=== PATIENT | male | born 1975 | race Caucasian/White ===

== ENCOUNTER 2017-01-16 13:27 | Emergency (ER) | payer OTHER ==
--- NOTE | 2017-01-16 14:08 | ED CLINICAL REPORT ---
Clinical Report - Physicians/Mid Levels [facility] [address] [place] [address] 01/16/2017 13:30 Patient: DEWAYNE COTA Time Seen: 13:51; initial patient contact, initial documentation, patient care assumed. Arrived- By private vehicle. Historian- patient. HISTORY OF PRESENT ILLNESS Chief Complaint: Injury to the right hand. The injury happened just prior to arrival. Occurred at work. ( was at work, but on lunch break working on his car). The patient sustained a laceration from a knife. Patient is experiencing mild pain. Patient denies injury to the head or neck. No other injury. REVIEW OF SYSTEMS The patient sustained a laceration. No swelling, tingling, numbness or weakness. All systems otherwise negative, except as recorded above. PAST HISTORY See nurses notes. PROBLEMS: Blood clot right leg- resolved. --13:40 Page-Melvin Huang, R.N. ADDITIONAL SURGERIES: Left hand. Beach compartment surgery. Wrist- left. --13:40 Page-Melvin Huang, R.N. The patient's dominant hand is the right. Tetanus immunization status is up-to-date. SOCIAL HISTORY Never smoker. Occasional alcohol use; consumes beer occasionally. History of occasional drug use: marijuana. No recent travel. Is a local resident. FAMILY HISTORY No significant family medical history. ADDITIONAL NOTES The nursing notes have been reviewed with agreement regarding the chief complaint, HPI, ROS, PMH and patient medications and allergies. PHYSICAL EXAM Vital Signs: 01/16/2017 13:41 BP: 132/77. HR: 74. RR: 17. O2 saturation: 96%. Temp: 98.6 F. Pain level now: 6/10. Have been reviewed as normal and appear to be correct. Appearance: Alert. Oriented X3. No acute distress. Head: Head atraumatic. Eyes: Pupils equal, round and reactive to light. Eyes normal inspection. Respiratory: No respiratory distress. Skin: Skin warm and dry. Skin intact. Extremities: Hand injury present. Right palm: mild tenderness and subcutaneous 1.0 cm laceration of the radial aspect of the palm and thenar area. SEE LACERATION PROCEDURE NOTE #1. Neurovascular intact distally. No erythema, swelling, abrasion, ecchymosis or puncture wound. No foreign body or deformity. No limitation in movement. No wrist injury. Hand and wrist exam otherwise negative. Extremities otherwise negative. Neuro, Vascular and Tendons: Vascular status intact. Sensation intact. Motor intact. Tendon function intact. Neuro: Oriented X 3. No motor deficit. No sensory deficit. Note: isolated injury to hand. PROGRESS AND PROCEDURES Laceration Repair: Location: right hand. Length: 1 cm. Complexity: simple (local anesthesia used and sutured). Wound depth/shape- subcutaneous, linear and irregular and involving fascia. Wound is clean. No contamination, foreign body or contused tissue present. No tissue loss. Distal neuro/vascular/tendon status normal. Tendon not examined. No tendon deficit or laceration or tendon injury. Local anesthesia provided using 1% lidocaine (3 mL). Prepped with Betadine. Wound explored, cleansed, irrigated and examined to the base in bloodless field with normal saline. Wound not debrided. No foreign material removed. Closure of skin: interrupted 4-0 nylon (2 sutures). Post-procedure: he is stable and there are no complications. Bleeding is controlled and neuro-vascular status is intact distal to the wound. Clean dressing applied. (per tech or nurse, see other notes). Tetanus immunization up-to-date. Estimated blood loss: 1 mL. Patient counseled in person regarding the patient's stable condition and diagnosis. Differential Diagnosis: Other possible considerations: hand lac, fb, skin avulsion, tendon injury. Above considerations are based on history and physical exam. Differential diagnosis was discussed with patient. Disposition: Discharged home in good and improved condition (14:08). Condition: good and stable. CLINICAL IMPRESSION Single deep laceration to the right hand.Treatment of laceration not delayed. No infection or foreign body present. INSTRUCTIONS Protect wound and keep wound area clean. Change dressing twice daily. Soak in warm soapy water twice daily. Apply bacitracin twice daily. Sutures should be removed in fourteen days. Warnings: GENERAL WARNINGS: Return or contact your physician immediately if your condition worsens or changes unexpectedly, if not improving as expected, or if other problems arise. Specifically return if problem worsens. Follow-up: Follow up with your doctor in about two weeks even if well and for suture removal and wound check. Call for an appointment. Summary of care provided to patient. Understanding of the discharge instructions verbalized by patient. (Electronically signed by Kerry Awad A.R.N.P. 01/16/2017 14:32)
--- NOTE | 2017-01-16 14:09 | ED NURSING NOTES ---
Clinical Report - Nurses [facility] [address] [place] [address] 01/16/2017 13:30 [id number] Triage time 13:36 Jan 16 2017. Acuity: LEVEL 4. Chief Complaint: INJURY TO RIGHT HAND. INJURY TO THE RIGHT HAND. Alert. No acute distress. SEPSIS SCREEN: Sepsis Screen: negative. Negative (no infection suspected/documented). ISABEL COMA SCORE: Isabel Coma Scale: 15- eyes open spontaneously (4); best verbal response- oriented x 4 (5); best motor response- obeys commands (6). --13:42 Melvin Montoya R.N. 13:39 01/16/17. BP: 132/77. HR: 74. RR: 17. O2 saturation: 96%. Temp: 98.6 F. Pain level now: 03/16. --14:35 Melvin Montoya R.N. Weight: 118.3 kg stated. Height/Length: 74 inches Per Patient. BMI: 33.5. --13:41 Melvin Montoya R.N. Medications None. --13:39 Melvin Montoya R.N. Medication/allergy information source: the patient. --13:42 Melvin Montoya R.N. Allergies Penicillin. --13:39 Melvin Montoya R.N. History Arrived by private vehicle. Historian: patient. 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 PAST MEDICAL HX: Tetanus status: up-to-date. Immunizations: up-to-date. SOCIAL HX: Never smoker. Occasional alcohol use; consumes beer occasionally. History of occasional drug use: marijuana. No infectious disease exposure. ABUSE ASSESSMENT: No report of abuse. SELF HARM ASSESSMENT: A self harm assessment was performed. The patient answered "no" to the question "Have you recently felt down, depressed, or hopeless?", "Have you noticed less interest or pleasure in doing things?", "Do you have thoughts of harming or killing yourself?", "Are you here because you tried to hurt yourself?", "Have you ever tried to hurt yourself before today?", "Have you recently had thoughts about harming or killing others?" and "Do you have any dangerous items in your possession?". FALL RISK ASSESSMENT: Fall risk assessment completed. No fall risk identified. NUTRITIONAL RISK ASSESSMENT: The nutritional risk assessment revealed no deficiencies. FUNCTIONAL ASSESSMENT: Functional assessment: no impairments noted. LEARNING NEEDS ASSESSMENT: The learning needs assessment revealed no barriers. SKIN INTEGRITY ASSESSMENT: Skin integrity risk assessment completed. No skin integrity risk identified. --13:42 Melvin Montoya R.N. PROBLEMS: Blood clot right leg- resolved. --13:40 Melvin Montoya R.N. ADDITIONAL SURGERIES: Left hand. Beach compartment surgery. Wrist- left. --13:40 Melvin Montoya R.N. Interventions ID band on patient. To treatment room. --13:42 Melvin Montoya R.N. PHYSICAL ASSESSMENT Ambulatory to room. Patient gowned. GENERAL / NEURO / PSYCH: Oriented X 4. Alert. Appears in no acute distress. EXTREMITIES: Capillary refill is less than 2 seconds in the extremities. Extremity pulses are within normal limits. Extremities exhibit normal ROM. Neuro-vascular status intact to the extremity. SKIN: Skin is warm and dry. Single small laceration to right hand. --13:44 Melvin Montoya R.N. NURSING PROGRESS NOTES Extremity elevated. Patient gowned. Reassurance given. Two patient identifiers checked. Call light placed in reach. Side rails up x 1. Bed placed in lowest position. Brakes of bed on. Patient ready for evaluation- chart flagged. --13:44 Melvin Montoya R.N. 14:02 01/16/2017 Lidocaine Injection Injectable 1 % given. (given to Kerry CALIX). --14:12 Melvin Montoya R.N. Applied dressing, following the application of antibiotic ointment (bacitracin). Secured with kerlix. --14:22 Kvng Tidwell, ER Tech1. DISPOSITION / DISCHARGE Condition at departure: improved and stable. The goals identified in the patient's plan of care were met. No learning barriers present. Discharge instructions provided and reviewed with the patient. Patient verbalized understanding. Written instructions provided in Arabic. The patient was discharged by the nurse practitioner. He was discharged home. He left the Emergency Department ambulatory and via private vehicle. Patient driving. ( dressing applied by edt per IRON PILER, lac/sutures c/d/i upon dc, pt instructed on proper home care and f/u for suture removal. pt utd on tdap-). --14:34 Melvin Montoya R.N. 14:22 01/16/17. BP: 112/48 taken on the left arm, while lying. HR: 72. RR: 17 (regular). O2 saturation: 99% on room air. Temp: 98 F (oral). Pain level now: 0/10. --14:34 Melvin Montoya R.N. Locked/Released at 01/16/2017 14:36 by Melvin Montoya R.N.
--- NOTE | 2017-01-16 14:09 | ED NURSING NOTES ---
Clinical Report - Nurses [facility] [address] [place] [address] 01/16/2017 13:30 [id number] Triage time 13:36 Jan 16 2017. Acuity: LEVEL 4. Chief Complaint: INJURY TO RIGHT HAND. INJURY TO THE RIGHT HAND. Alert. No acute distress. SEPSIS SCREEN: Sepsis Screen: negative. Negative (no infection suspected/documented). ISABEL COMA SCORE: Isabel Coma Scale: 15- eyes open spontaneously (4); best verbal response- oriented x 4 (5); best motor response- obeys commands (6). --13:42 Melvin Montoya R.N. 13:39 01/16/17. BP: 132/77. HR: 74. RR: 17. O2 saturation: 96%. Temp: 98.6 F. Pain level now: 03/16. --14:35 Melvin Montoya R.N. Weight: 118.3 kg stated. Height/Length: 74 inches Per Patient. BMI: 33.5. --13:41 Melvin Montoya R.N. Medications None. --13:39 Melvin Montoya R.N. Medication/allergy information source: the patient. --13:42 Melvin Montoya R.N. Allergies Penicillin. --13:39 Melvin Montoya R.N. History Arrived by private vehicle. Historian: patient. 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 PAST MEDICAL HX: Tetanus status: up-to-date. Immunizations: up-to-date. SOCIAL HX: Never smoker. Occasional alcohol use; consumes beer occasionally. History of occasional drug use: marijuana. No infectious disease exposure. ABUSE ASSESSMENT: No report of abuse. SELF HARM ASSESSMENT: A self harm assessment was performed. The patient answered "no" to the question "Have you recently felt down, depressed, or hopeless?", "Have you noticed less interest or pleasure in doing things?", "Do you have thoughts of harming or killing yourself?", "Are you here because you tried to hurt yourself?", "Have you ever tried to hurt yourself before today?", "Have you recently had thoughts about harming or killing others?" and "Do you have any dangerous items in your possession?". FALL RISK ASSESSMENT: Fall risk assessment completed. No fall risk identified. NUTRITIONAL RISK ASSESSMENT: The nutritional risk assessment revealed no deficiencies. FUNCTIONAL ASSESSMENT: Functional assessment: no impairments noted. LEARNING NEEDS ASSESSMENT: The learning needs assessment revealed no barriers. SKIN INTEGRITY ASSESSMENT: Skin integrity risk assessment completed. No skin integrity risk identified. --13:42 Melvin Montoya R.N. PROBLEMS: Blood clot right leg- resolved. --13:40 Melvin Montoya R.N. ADDITIONAL SURGERIES: Left hand. Beach compartment surgery. Wrist- left. --13:40 Melvin Montoya R.N. Interventions ID band on patient. To treatment room. --13:42 Melvin Montoya R.N. PHYSICAL ASSESSMENT Ambulatory to room. Patient gowned. GENERAL / NEURO / PSYCH: Oriented X 4. Alert. Appears in no acute distress. EXTREMITIES: Capillary refill is less than 2 seconds in the extremities. Extremity pulses are within normal limits. Extremities exhibit normal ROM. Neuro-vascular status intact to the extremity. SKIN: Skin is warm and dry. Single small laceration to right hand. --13:44 Melvin Montoya R.N. NURSING PROGRESS NOTES Extremity elevated. Patient gowned. Reassurance given. Two patient identifiers checked. Call light placed in reach. Side rails up x 1. Bed placed in lowest position. Brakes of bed on. Patient ready for evaluation- chart flagged. --13:44 Melvin Montoya R.N. 14:02 01/16/2017 Lidocaine Injection Injectable 1 % given. (given to Kerry CALIX). --14:12 Melvin Montoya R.N. Applied dressing, following the application of antibiotic ointment (bacitracin). Secured with kerlix. --14:22 Kvng Tidwell, ER Tech1. DISPOSITION / DISCHARGE Condition at departure: improved and stable. The goals identified in the patient's plan of care were met. No learning barriers present. Discharge instructions provided and reviewed with the patient. Patient verbalized understanding. Written instructions provided in Hebrew. The patient was discharged by the nurse practitioner. He was discharged home. He left the Emergency Department ambulatory and via private vehicle. Patient driving. ( dressing applied by edt per [employer], lac/sutures c/d/i upon dc, pt instructed on proper home care and f/u for suture removal. pt utd on tdap-). --14:34 Melvin Montoya R.N. 14:22 01/16/17. BP: 112/48 taken on the left arm, while lying. HR: 72. RR: 17 (regular). O2 saturation: 99% on room air. Temp: 98 F (oral). Pain level now: 0/10. --14:34 Melvin Montoya R.N. Locked/Released at 01/16/2017 14:36 by Melvin Montoya R.N.
--- NOTE | 2017-01-16 14:09 | ED ORDER SUMMARY ---
..... Patient: DEWAYNE COTA OrderSheet [facility] VisitID: [id number] [address] [place] [address] 41y, M Registration Date/Time: 01/16/2017 ORDER SHEET Weight: 118.3 kg (stated) Allergies: Penicillin GENERAL ORDERS: Suture Set-up: (13:55 01/16/2017 HBivens A.R.N.P.) (14:28 KWilliams R.N.) Dress Wounds (13:55 01/16/2017 HBivens A.R.N.P.) (14:28 KWilliams R.N.) MEDICATION ORDERS: Lidocaine Injection 1% plain (NOW) (13:55 01/16/2017 HBivens A.R.N.P.) (Ack 14:02 KPagilberto-Reina R.N.) (14:12 KPagilberto-Reina R.N.) IV FLUIDS: ORDER SHEET NOTES: [Electronically signed by Kerry AwadR.N.P. (14:32 01/16/2017)] [Electronically signed by Melvin Montoya R.N. (14:36 01/16/2017)] [Electronically locked/signed by Melvin Montoya R.N. (14:36 01/16/2017)]
--- NOTE | 2017-01-16 14:09 | ED ORDER SUMMARY ---
..... Patient: DEWAYNE COTA OrderSheet [facility] VisitID: [id number] [address] [place] [address] 41y, M Registration Date/Time: 01/16/2017 ORDER SHEET Weight: 118.3 kg (stated) Allergies: Penicillin GENERAL ORDERS: Suture Set-up: (13:55 01/16/2017 HBivens A.R.N.P.) (14:28 KWilliams R.N.) Dress Wounds (13:55 01/16/2017 HBivens A.R.N.P.) (14:28 KWilliams R.N.) MEDICATION ORDERS: Lidocaine Injection 1% plain (NOW) (13:55 01/16/2017 HBivens A.R.N.P.) (Ack 14:02 KPagilberto-Reina R.N.) (14:12 KPagilberto-Reina R.N.) IV FLUIDS: ORDER SHEET NOTES: [Electronically signed by Kerry AwadR.N.P. (14:32 01/16/2017)] [Electronically signed by Melvin Montoya R.N. (14:36 01/16/2017)] [Electronically locked/signed by Melvin Montoya R.N. (14:36 01/16/2017)]
--- NOTE | 2017-01-16 14:36 | ED MAR SUMMARY ---
..... Medication Administration Record [facility] [address] [place] [address] Patient: DEWAYNE COTA Visit ID: [id number] 41y, M Weight: 118.3 kg Height/Length: 74 in BMI: 33.5 ALLERGIES: Penicillin Given 14:02 01/16/2017 Melvin Montoya R.N. Medication Administered: LIDOCAINE [INJECTION], Dose: 1 % Injectable Injection. Medication Ordered: Lidocaine Injection 1% plain (NOW).
--- NOTE | 2017-01-16 14:36 | ED MED RECONCILIATION SUMMARY ---
Patient: DEWAYNE COTA Medication Reconciliation Report [facility] VisitID: [id number] [address] [place] [address] 41y, M Registration Date/Time: 01/16/2017 Weight: 118.3 kg Height/Length: 74 in. BMI: 33.5 ALLERGIES: Penicillin The patient's Home Medications are listed below: NONE. The source(s) of the original Home Medication information: patient The following Medications were given to the patient in the Emergency Department: Lidocaine [Injection] Injection 1 %, administered: 01/16/2017 2:02:00 PM The following Medications were prescribed to the patient: None.
--- NOTE | 2017-01-16 14:36 | ED MED RECONCILIATION SUMMARY ---
Patient: DEWAYNE COTA Medication Reconciliation Report [facility] VisitID: [id number] [address] [place] [address] 41y, M Registration Date/Time: 01/16/2017 Weight: 118.3 kg Height/Length: 74 in. BMI: 33.5 ALLERGIES: Penicillin The patient's Home Medications are listed below: NONE. The source(s) of the original Home Medication information: patient The following Medications were given to the patient in the Emergency Department: Lidocaine [Injection] Injection 1 %, administered: 01/16/2017 2:02:00 PM The following Medications were prescribed to the patient: None.
--- NOTE | 2017-01-16 14:36 | ED MAR SUMMARY ---
..... Medication Administration Record [facility] [address] [place] [address] Patient: DEWAYNE COTA Visit ID: [id number] 41y, M Weight: 118.3 kg Height/Length: 74 in BMI: 33.5 ALLERGIES: Penicillin Given 14:02 01/16/2017 Melvin Montoya R.N. Medication Administered: LIDOCAINE [INJECTION], Dose: 1 % Injectable Injection. Medication Ordered: Lidocaine Injection 1% plain (NOW).
--- NOTE | 2017-01-16 14:36 | ED DISCHARGE INSTRUCTIONS ---
Patient: DEWAYNE COTA General Instructions [facility] VisitID: [id number] [place] [address] 41y, M Registration Date/Time: 01/16/2017 Single deep laceration to the right hand.Treatment of laceration not delayed. No infection or foreign body present. INSTRUCTIONS Protect wound and keep wound area clean. Change dressing twice daily. Soak in warm soapy water twice daily. Apply bacitracin twice daily. Sutures should be removed in fourteen days. Warnings: GENERAL WARNINGS: Return or contact your physician immediately if your condition worsens or changes unexpectedly, if not improving as expected, or if other problems arise. Specifically return if problem worsens. Follow-up: Follow up with your doctor in about two weeks even if well and for suture removal and wound check. Call for an appointment. Summary of care provided to patient. Understanding of the discharge instructions verbalized by patient. ADDITIONAL INFORMATION Laceration (All Closures) Alaceration is a cut through the skin. This will usually require stitches (sutures) or eben if it is deep. Minor cuts may be treated with a surgical tape closure orskin glue. Home care The following guidelines will help you care for your laceration at home: Extremity, face, or trunk wounds Keep the wound clean and dry. If a bandage was applied and it becomes wet or dirty, replace it. Otherwise, leave it in place for the first 24 hours. If stitches or eben were used, clean the wound daily. After removing the bandage, wash the area with soap and water. Use a wet cotton swab to loosen and remove any blood or crust that forms. The doctor may prescribe an antibiotic cream or ointment to prevent infection. Do not stop taking this medication until you have finished the prescribed course or the doctor tells you to stop. The doctor may also prescribe medications for pain. Follow the doctors instructions for taking these medications. You may remove the bandage to shower as usual after the first 24 hours, but do not soak the area in water (no swimming) until the stitches or eben are removed. If surgical tape was used, keep the area clean and dry. If it becomes wet, blot it dry with a towel. If skin glue was used, do not scratch, rub, or pick at the adhesive film. Do not place tape directly over the film. Do not apply liquid, ointment, or creams to the wound while the film is in place. Do not clean the wound with peroxide and do not apply ointments. Avoid activities that cause heavy sweating until the film has fallen off. Protect the wound from prolonged exposure to sunlight or tanning lamps. You may shower as usual but do not soak the wound in water (no baths or swimming). The film will fall off by itself in 510 days. Scalp wounds During the first two days, you may carefully rinse your hair in the shower to remove blood, glass or dirt particles. After two days, you may shower and shampoo your hair normally. Do not soak your scalp in the tub or go swimming until the stitches or eben have been removed. Talk with your doctor before applying any antibiotic ointment to the wound. Mouth wounds Eat soft foods to reduce pain. If the cut is inside of your mouth, clean by rinsing after each meal and at bedtime with a mixture of equal parts water and hydrogen peroxide (do not swallow!). Or, you can use a cotton swab to directly apply hydrogen peroxide onto the cut. Mouth wounds can be painful when eating. You may use an [id number] local numbing solution for pain relief. If this is not available, you may use any numbing solution for teething babies. You may apply this directly to the sores with a cotton-tip swab or with your finger. Follow-up care Follow up with your health care provider. Most skin wounds heal within ten days. Mouth and facial wounds heal within five days. However, even with proper treatment, a wound infection may sometimes occur. Therefore, you should check the wound daily for signs of infection listed below. Stitches should be removed from the face within five days; stitches and eben should be removed from other parts of the body within 714 days. If dissolving stitches were used in the mouth, these will fall out or dissolve without the need for removal. If tape closures were used, remove them yourself if they have not fallen off after 7 days. Ifskin glue was used, the film will fall off by itself in 510 days. When to seek medical care Get prompt medical attention if any of these occur: Bleeding not controlled by direct pressure Signs of infection, including increasing pain in the wound, increasing wound redness or swelling, or pus coming from the wound Fever of 100.4F (38C) or higher, or as directed by your health care provider Stitches or eben come apart or fall out or surgical tape falls off before 7 days Wound edges re-open Laceration, Extremity (Sutures, Eben, Or Tape) A laceration is a cut through the skin. This will usually require stitches (sutures) or eben if it is deep. Minor cuts may be treated with surgical tape closures. Home care The following guidelines will help you care for your laceration at home: Keep the wound clean and dry. If a bandage was applied and it becomes wet or dirty, replace it. Otherwise, leave it in place for the first 24 hours, then change it once a day or as directed. If stitches or eben were used, clean the wound daily: After removing the bandage, wash the area with soap and water. Use a wet cotton swab to loosen and remove any blood or crust that forms. After cleaning, keep the wound clean and dry. Talk with your doctor before applying any antibiotic ointment to the wound. Reapply the bandage. You may remove the bandage to shower as usual after the first 24 hours, but do not soak the area in water (no swimming) until the stitches or eben are removed. If surgical tape closures were used, keep the area clean and dry. If it becomes wet, blot it dry with a towel. The doctor may prescribe an antibiotic cream or ointment to prevent infection. Do not stop taking this medication until you have finished the prescribed course or the doctor tells you to stop. The doctor may also prescribe medications for pain. Follow the doctors instructions for taking these medications. If you have chronic liver or kidney disease or ever had a stomach ulcer or GI bleeding, talk with your doctor before using these medicines. Follow-up care Follow up with your health care provider. Most skin wounds heal within ten days. However, an infection may sometimes occur despite proper treatment. Therefore, check the wound daily for the signs of infection listed below. Stitches and eben should be removed within 714 days. If surgical tape closures were used, you may remove them after 10 days, if they have not fallen off by then. Notify your doctor if you notice persistent numbness or weakness in the injured extremity. (Note:A radiologist will review any X-rays that were taken. We will notify you of any new findings that may affect your care.) When to seek medical care Get prompt medical attention if any of these occur: Increasing pain in the wound Redness, swelling, or pus coming from the wound Fever of 100.4F (38C) or higher, or as directed by your health care provider If stitches or eben come apart or fall out before your next appointment If the surgical tape closures fall off within seven days, or the wound edges re-open Bleeding not controlled by direct pressure You have been given the following additional information: Laceration, All Laceration, Extrem (Suture, Staple, Or Tape) (Electronically signed by Kerry Awad A.R.N.P. 01/16/2017 14:32)
== END 2017-01-16 14:22 | disposition home or self-care (01) ==
LOC: ED SRH 13:27
DX: S61.411A Laceration without foreign body of right hand, initial encounter (principal); W26.0XXA Contact with knife, initial encounter; Y93.89 Activity, other specified; Y92.89 Other specified places as the place of occurrence of the external cause; Y99.8 Other external cause status; Z88.0 Allergy status to penicillin